=== PATIENT | female | born 1975 | race Caucasian/White ===

== ENCOUNTER 2018-08-14 11:53 | Emergency (ER) | payer BC ==
[~2018-08-14] VITALS: Ht 170.2 cm; Wt 80.3 kg
[~2018-08-14 11:53] MED LIST: PROPRANOLOL HCL10 MG PO; VYVANSE40 MG PO; ZES20 PO; ZESTRIL20 MG PO
[2018-08-14 11:54] VITALS: BP 174/114; Ht 170.2 cm; Wt 80.3 kg
== END 2018-08-14 14:03 | disposition left against medical advice (07) ==
LOC: ED 11:53
DX: Z53.21 Procedure and treatment not carried out due to patient leaving prior to being seen by health care provider (principal)